=== PATIENT | male | born 1965 | race Hispanic/Latino ===

== ENCOUNTER → 2023-04-10 | Outpatient (CLI) | payer OTHER | END | disposition home or self-care (01) | LOC: RAH 15:24 | PROVIDERS: ATTEND Internal Medicine | DX: M48.07 Spinal stenosis, lumbosacral region (principal); M25.562 Pain in left knee; Z98.890 Other specified postprocedural states; M54.50 Low back pain, unspecified; Z95.0 Presence of cardiac pacemaker | CPT/HCPCS: 71046; 72100; 73560 ==